=== PATIENT | female | born 1950 | race African-American/Black ===

== ENCOUNTER 2022-09-14 09:25 | Outpatient (CLI) | payer MEDICARE, SELFPAY ==
--- NOTE | ~2022-09-14 | CT_ITS ---
EXAMINATION: CT lung screening DATE: 09/14/2022 10:08 INDICATION: Personal history of nicotine dependence, prior smoker with 60 pack year history TECHNIQUE: Computed tomography (CT) of the chest was performed without intravenous contrast. The dose -length product (DLP) was 120.38 mGy-cm. Automated exposure control and iterative reconstruction tech [employer] were employed. COMPARISON: None FINDINGS: There is mild emphysema. There is a 4 mm nodule of the left lower lobe. There is a 7 mm jux tapleural nodule of the left upper lobe. There is a 3 mm nodule in the right lung apex. No pleural ef fusion or pneumothorax. There is mild dependent atelectasis. Changes of coronary artery bypass grafti ng are noted. No pathologically enlarged thoracic lymph nodes are identified. The heart size is lou l. The gallbladder is surgically absent. IMPRESSION: 1. Lung-RADS category 2: Benign appearance or behavior. Continue annual screening with noncontrast lo w-dose chest CT in 12 months. Reviewed, dictated and finalized at location L. IMPRESSION: 1. Lung-RADS category 2: Benign appearance or behavior. Continue annual screeni ng with noncontrast low-dose chest CT in 12 months.
== END 2022-09-14 09:26 | disposition home or self-care (01) ==
PROVIDERS: Visit Provider Family Medicine
DX: Z12.2 Encounter for screening for malignant neoplasm of respiratory organs (principal); Z87.891 Personal history of nicotine dependence
CPT/HCPCS: 71271

== ENCOUNTER 2022-10-01 10:06 | Outpatient (CLI) | payer MEDICARE, SELFPAY ==
--- NOTE | 2022-10-01 14:13 | WPDPFTINT ---
PFT Procedure Performed PFT Procedure Performed Plethysmography (Lung Vol) Diffusing Cap (DLCO) Flow Vol Loop Spirometry w/o Bronchodil PFT Interpretation This is a pulmonary function test with spirometry, plethysmography and diffusing capacity. The test was performed and results interpreted in accordance with the 2019 and 2005 ATS/ERS Task Force guidelines respectively using the Global Lung Function Initiative-2012 reference equations. Patient demonstrated good effort and cooperation. Reproducibility criteria were met. The quality of the spirometry maneuver was Grade B. Findings: Spirometry: The contour the inspiratory and expiratory flow tracing are normal. The FVC is 2.09 L, 82% predicted. The FEV1 is 1.52 L, 77% predicted. The FEV1: FVC ratio 73%. Plethysmography: Total lung capacity is 6.78 L, 143% predicted. functional residual capacity is 4.50 L, 147% predicted. The residual volume is 3.93 L, 179% predicted. Diffusing capacity: The diffusing capacity unadjusted for hemoglobin and carboxyhemoglobin is 14.7, 70% predicted. The diffusing capacity adjusted for alveolar volume is 4.01, 97% predicted. Impression: The spirometry is normal without evidence of an obstructive abnormality. Hyperinflation is present as the total lung capacity is increased with an increased residual volume to total lung capacity ratio. The diffusing capacity is normal. There are no prior studies for comparison
== END 2022-10-01 10:07 | disposition home or self-care (01) ==
LOC: ANHPFT 10:06
PROVIDERS: Visit Provider Family Medicine
DX: J44.9 Chronic obstructive pulmonary disease, unspecified (principal)
CPT/HCPCS: 94375; 94726; 94729

== ENCOUNTER → 2022-10-04 11:52 | Outpatient (CLI) | payer MEDICARE, SELFPAY ==
--- NOTE | ~2022-10-04 | DEXA_ITS ---
Bone Density Report Name: CANDACE PANIAGUA Age: 71 Sex: Female Ethnicity: Black Date of : 1950 Indication: postmenopausal; screening for osteoporosis; height loss; asthma or emphysema; Referring Provider: ROBER, HENRY Khalil Study: Bone densitometry was performed. Exam Date: October 04, 2022 Accession number: [id number] Bone Density: Region BMD T-score Z-score Classification AP Spine (L1-L4) 1.024 -0.2 1.4 Normal Femoral Neck (Left) 0.611 -2.1 -0.9 Osteopenia Total Hip (Left) 0.880 -0.5 0.3 Normal Femoral Neck (Right) 0.649 -1.8 -0.6 Osteopenia Total Hip (Right) 0.887 -0.5 0.3 Normal Total Hip Mean 0.884 -0.5 0.3 Normal World Health Organization criteria for BMD impression classify patients as: Normal (T-score at or above -1.0), Osteopenia (T-score between -1.0 and -2.5), or Osteoporosis (T-score at or below -2.5). 10-year Fracture Risk(1): Major Osteoporotic Fracture 5.8% Hip Fracture 1.4% Reported Risk Factors: [place] (Black), Neck BMD=0.611, BMI=32.6 (1) FRAX(R) Version 3.08. Fracture probability calculated for an untreated patient. Fracture probability may be lower if the patient has received treatment. Clinical Information Provided by Patient: Has used the following medications: Vitamin D Has the following medical conditions: Asthma or Emphysema Patient maximum height was 66.0 Menopause Age: 50 No regular weight bearing exercise Drinks caffeinated beverages Onset of menses at age 11 Number of children 7 Impression: The patient has low bone mass, based on the Left Femoral Neck T-score. The patient has an estimated ten-year risk of hip fracture of 1.4% and an estimated ten-year risk of major fracture of 5.8%, based on the WHO FRAX algorithm. Discussion: BONE DENSITY IS LOW AT ONE OR MORE SKELETAL SITES. This patient's lowest T-score is low at one or more skeletal sites. It meets the World Health Organization's (WHO) criteria for ?low bone mass? (T-score between -1.0 and -2.5). The patient's 10-year risk of fracture as calculated by FRAX is less than the threshold where pharmacological therapy is recommended by the National Osteoporosis Foundation (NOF). However, all treatment decisions require clinical judgment and consideration of individual patient factors, including patient preferences, comorbidities, previous drug use, risk factors not captured in the FRAX model (e.g., frailty, falls, vitamin D deficiency, increased bone turnover, interval significant decline in bone density) and possible under or overestimation of fracture risk by FRAX. The patient should follow a healthful lifestyle (good nutrition with adequate calcium and vitamin D, and appropriate weight-bearing exercise). Follow-Up: Consider repeating this study in 2 to 3 years to reassess this patient's status, or soone
== END ==
PROVIDERS: PCP Family Medicine; Visit Provider Family Medicine
DX: Z13.820 Encounter for screening for osteoporosis (principal); M81.0 Age-related osteoporosis without current pathological fracture; M85.852 Other specified disorders of bone density and structure, left thigh; M85.851 Other specified disorders of bone density and structure, right thigh
CPT/HCPCS: 77080

== ENCOUNTER 2022-11-16 10:18 | Outpatient (CLI) | payer MEDICARE, SELFPAY ==
--- NOTE | ~2022-11-16 | MM_ITS ---
EXAMINATION: MM screening mehul BI w melody HISTORY: Screening mammogram TECHNIQUE: Craniocaudal and mediolateral oblique 3-D tomosynthesis images were obtained and synthetic 2-D images were generated. CAD analysis was submitted and interpreted. COMPARISON: No prior mammogram is available for comparison at this institution. BREAST PARENCHYMAL COMPOSITION: There are scattered areas of fibroglandular density. FINDINGS: No suspicious mass, calcification, or architectural distortion are identified in either power ast to suggest malignancy. IMPRESSION: 1. No mammographic evidence of malignancy. 2. Recommend routine screening mammography in one year. BI-RADS Category 1: Negative Reviewed, dictated and finalized at location A.
== END 2022-11-16 10:19 | disposition home or self-care (01) ==
PROVIDERS: PCP Family Medicine; Visit Provider Family Medicine
DX: Z12.31 Encounter for screening mammogram for malignant neoplasm of breast (principal)
CPT/HCPCS: 77063; 77067

== ENCOUNTER 2023-05-28 13:30 | Inpatient (IN) | payer MEDICARE, SELFPAY ==
[2023-05-28] VITALS (7 sets, daily range): BP systolic 140–173; BP diastolic 74–94; PULSE 58–72; RESP 16–20; TEMP 36.6–36.7; O2SAT 99–100; BMI 31.3
--- NOTE | ~2023-05-28 | CT_ITS ---
EXAMINATION: CTA chest PE protocol DATE: 05/29/2023 17:47 [employer]ICAL PSYCHOLOGIST [employer] INDICATION: Elevated d-dimer. TECHNIQUE: Computed tomographic angiography (CTA) of the chest was performed with 100 mL Omnipaque-35 0 intravenous contrast. The dose-length product was 532.11 mGy-cm. Maximum intensity projection 3D-re constructions of the aorta and other arteries were constructed by the technologist on a separate work station. COMPARISON: None. FINDINGS: Study technically adequate although evaluation of lower lobe subsegmental pulmonary arterie s limited by motion and contrast bolus timing. No large central pulmonary embolism. Enlarged pulmonar y arteries consistent with pulmonary hypertension. There is atherosclerosis of the aorta and coronary arteries. 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 There is thoracic aortic ectasia. There is emphysema. There is 6 mm left upper lob e nodule, image 30. No focal airspace consolidation. Stable 4 mm left lower lobe nodule. Cardiomegaly . Mild diffuse thickening of the esophagus, suspicious for esophagitis. No significant pleural or per icardial effusion. No thoracic lymphadenopathy. Large amount of debris present in the stomach. There is left renal cyst. IMPRESSION: 1. No large central pulmonary embolism. 2: Pulmonary arterial hypertension. 3: Diffuse atherosclerosis with focal saccular aneurysm of the descending thoracic aorta just above t he diaphragm measuring 3.4 cm. 4: Stable pulmonary nodules measuring 6 mm or less, likely benign. Reviewed, dictated and finalized at location A. [employer] PSYCHOLOG[employer] IMPRESSION: 1. No large central pulmonary embolism. 2: Pulmonary arterial hypertension. 3: Diffuse atherosclerosis with focal saccular aneurysm of the descending thora cic aorta just above the diaphragm measuring 3.4 cm. 4: Stable pulmonary nodules measuring 6 mm or less, likely benign.
--- NOTE | ~2023-05-28 | CT_ITS ---
EXAMINATION: CT abdomen pelvis wo con DATE: 05/28/2023 18:12 INDICATION: Back pain. UTI symptoms. TECHNIQUE: Computed tomography (CT) of the abdomen and pelvis was performed without intravenous contr ast. The dose-length product was 852.18 mGy-cm. Automated exposure control and iterative reconstructi on technique were employed. COMPARISON: None. FINDINGS: Lung bases are unremarkable. No significant pleural or pericardial effusion. Heart size nor mal. There is atherosclerosis and ectasia of the aorta without aneurysm. There are calcified granulom as of the spleen. Status post cholecystectomy. The liver, pancreas, adrenal glands are unremarkable. There is a 3 mm nonobstructing right renal stone. There is a 2 cm left renal cyst. No hydronephrosis. There is calcified uterine fibroid which is exophytic from the uterus. Nonobstructive bowel gas lilli ines. Severe lumbar spondylosis. Mild superior endplate compression deformity of T12, likely chronic. Bladder wall is mildly irregular and contains punctate nondependent gas. IMPRESSION: 1. Nonobstructing right nephrolithiasis. 2: Mildly thickened irregular bladder wall. Punctate focus of nondependent gas present in the bladde r lumen which may be from recent instrumentation or infection. Consider cystitis in the appropriate c linical setting. Reviewed, dictated and finalized at location A. PER DIEM IMPRESSION: 1. Nonobstructing right nephrolithiasis. 2: Mildly thickened irregular bladder wall. Punctate focus of nondependent gas present in the bladder lumen which may be from recent instrumentation or infec tion. Consider cystitis in the appropriate clinical setting.
--- NOTE | ~2023-05-28 | XR_ITS ---
EXAMINATION: XR chest 1V 05/28/2023 18:17 INDICATION: Cough and shortness of breath PROCEDURE: AP view of the chest COMPARISON: No prior studies for comparison. FINDINGS: The lungs are clear. The cardiomediastinal silhouette is within normal limits. There are no pleural effusions. There is no pneumothorax suspected. Status post median sternotomy. IMPRESSION: 1: NO ACUTE CARDIOPULMONARY DISEASE. Reviewed, dictated and finalized at location A. RVISOR KENNEL
--- NOTE | 2023-05-28 17:00 | ECG_ITS ---
Measurements Intervals [place] Rate: 61 P: 35 CA: 170 QRS: 22 QRSD: 89 T: 178 QT: 393 QTc: 398 Interpretive Statements SINUS RHYTHM NONSPECIFIC ST ABNORMALITY BORDERLINE ECG NO PREVIOUS ECG AVAILABLE FOR COMPARISON Electronically Signed On 05-29-2023 11:49:13 [employer] by Steven Wiseman M.D.
--- NOTE | 2023-05-28 17:05 | ED.GENADULT ---
HPI - General Adult General Chief complaint: Urogenital-Female Stated complaint: COPD-has cold, kidney stone Time Seen by Provider: 05/28/23 16:34 Source: patient, RN notes reviewed and old records reviewed Mode of arrival: ambulatory Limitations: no limitations History of Present Illness HPI narrative: This is a 72 year old female with history of COPD, CABG who presents for evaluation of back pain and cough. PAtient states she has had a severe cough for 1 week. Her cough is productive with yellow phlegm. She is also short of breath. She is using her albuterol inhaler every 4 to 6 hours without relief. She denies fever, chest pain. She also reports lower back pain that is worse on the left side. Pain is worse with movement. She reports decreased urination. She denies hematuria, nausea or vomiting. She has not taken any medication for her pain. She denies any fall. Related Data Home Medications Medication Instructions Recorded Confirmed acetaminophen 500 mg tablet 500 mg PO Q6H PRN Back Pain 05/28/23 05/28/23 albuterol sulfate 90 mcg/actuation 90 mcg inhalation PRN wheezing 05/28/23 05/28/23 aerosol inhaler (ProAir HFA) allopurinol 100 mg tablet 100 mg PO DAILY 05/28/23 05/28/23 (Zyloprim) aspirin 81 mg tablet,delayed 81 mg PO DAILY 05/28/23 05/28/23 release (Enteric Coated Aspirin) carvedilol 25 mg tablet (Coreg) 25 mg PO BID 05/28/23 05/28/23 cholecalciferol (vitamin D3) 25 25 mcg PO DAILY 05/28/23 05/28/23 mcg (1,000 unit) tablet (Vitamin D3) clopidogrel 75 mg tablet (Plavix) 75 mg PO DAILY 05/28/23 05/28/23 ezetimibe 10 mg tablet (Zetia) 10 mg PO DAILY 05/28/23 05/28/23 isosorbide mononitrate 60 mg 60 mg PO DAILY 05/28/23 05/28/23 tablet,extended release 24 hr losartan 50 mg tablet (Cozaar) 50 mg PO Q12H 05/28/23 05/29/23 metformin 500 mg tablet,extended 500 mg PO BID 05/28/23 05/28/23 release 24 hr nitroglycerin 0.4 mg sublingual 0.4 mg sublingual PRN 05/28/23 05/28/23 tablet (Nitrostat) pantoprazole 40 mg tablet,delayed 40 mg PO DAILY 05/28/23 05/28/23 release (Protonix) povidone 1.25 % eye drops (Soothe 1 drp ophthalmic (eye) PRN 05/28/23 05/28/23 Hydration) spironolactone 25 mg tablet 25 mg PO DAILY 05/28/23 05/28/23 (Aldactone) evolocumab 140 mg/mL subcutaneous 140 mg subcut [id number] 05/29/23 05/29/23 pen injector (Repatha SureClick) Allergies Allergy/AdvReac Type Severity Reaction Status Date / Time penicillin G Allergy Unknown Verified 05/28/23 13:31 Review of Systems Constitutional: Constitutional: Denies weakness Cardiovascular: Cardiovascular: Denies syncope, Denies rapid heart rate, Denies irregular heart rhythm, Denies leg edema and Reports dyspnea Respiratory: Respiratory: Denies chest congestion, Reports cough, Denies hemoptysis, Denies excessive phlegm production and Reports dyspnea Gastrointestinal: Gastrointestinal: Denies abdominal pain, Denies hematochezia, Denies diarrhea and Denies vomiting Genitourinary: Genitourinary: Denies hematuria and Denies dysuria Musculoskeletal: Musculoskeletal: Reports back pain, Denies joint swelling, Denies loss of height and Denies muscle weakness Neurologic: Denies syncope, Denies focal weakness and Denies weakness PMF Past Medical History Medical History Cerebrovascular accident Coronary artery disease Emphysema/COPD Hyperlipidemia Hypertension Osteoarthritis Type 2 diabetes mellitus Surgical History Surgical History History of bilateral knee arthroplasty History of cataract extraction History of cholecystectomy History of coronary artery bypass graft (2021) History of spinal surgery Family History Family History (Updated 05/28/23 @ 23:41 by Stacia Solomon PA-C) Other Cancer Diabetes mellitus Heart disease Hypertension Social History Social History (Updated 05/28/23 @ 23
[2023-05-28] MEDS: ALBUTEROL SULFATE NEB 2.5 MG/3 ML INH 5 MG INHALATION (17:18)
[2023-05-28] MEDS: IPRATROPIUM BR 0.02% INH SOLN 0.5 MG/2.5 ML VIAL INHALATION (17:18)
[2023-05-28 17:25] LABS: Alveolar/Arterial O2 Gradient 32.4 mmHg; Base Excess ABG -1.9 mEq/l (+/-2.0); Carboxyhemoglobin 0.2 % THb (0-2.0); Fractional Inspired Oxygen 21 %; Methemoglobin ABG 0.4 %THb (0-1.5); Oxygen Content ABG 16.2 %vol (16.0-22.0); Oxygen Saturation ABG 93.8 % (95.0-100.0); Oxyhemoglobin 92.7 % THb (90.0-100.0); PCO2 ABG 39.6 mmHg (35.0-45.0); PO2 ABG 69.9 mmHg (80.0-100.0); PO2 FiO2 Ratio Arterial Blood 3.33 %; Reduced Hemoglobin 6.7 %THb (0-5.0); Total Hemoglobin 12.4 g/dL (12.0-18.0); pH ABG 7.382 (7.350-7.450)
[2023-05-28 17:27] LABS: Device ROOM AIR; Site Drawn RIGHT BRACHIAL
[2023-05-28 18:10] LABS: Basophils Absolute Auto 0.1 K/mm3 (0.0-0.1); Basophils Percent Auto 0.7 % (0.2-1.2); Eosinophils Absolute Auto 0.3 K/mm3 (0-0.3); Eosinophils Percent Auto 3.2 % (0-4.4); Hematocrit 38.7 % (37.0-47.0); Hemoglobin 11.9 g/dL (12.0-15.0); Immature Granulocyte Absolute 0.03 K/mm3 (0.00-0.031); Immature Granulocyte Percent A 0.3 % (0-0.5); Lymphocytes Absolute Auto 4.23 K/mm3 (0.9-3.2); Lymphocytes Percent Auto 45.3 % (18.3-44.2); Mean Corpuscular HGB Conc 30.7 g/dl (32-36); Mean Corpuscular Hemoglobin 26.3 pg (26-34); Mean Corpuscular Volume 85.6 fl (80-100); Mean Platelet Volume 10.5 fl (7.4-10.4); Monocytes Absolute Auto 0.7 K/mm3 (0.1-0.6); Monocytes Percent Auto 7.3 % (2.6-8.5); Neutrophils Percent Auto 43.2 % (45.5-73.1); Platelet Count Result 271 k/mm3 (150-375); Red Blood Count 4.52 M/mm3 (4.2-5.4); Red Cell Distribution Width 16.6 % (11.5-14.5); White Blood Count 9.3 K/mm3 (4.5-10.0)
[2023-05-28 18:32] LABS: Alanine Aminotransferase 21 U/L (6-35); Albumin Level 4.3 g/dL (3.5-5.1); Alkaline Phosphatase 85 U/L (38-126); Anion Gap 13 mmol/L (8-16); Aspartate Amino Transferase 20 U/L (14-36); Bilirubin,Total 0.5 mg/dL (0.2-1.3); Blood Urea Nitrogen 7 mg/dL (7-17); Calcium 9.9 mg/dL (8.4-10.2); Carbon Dioxide 23 mmol/L (22-30); Chloride 106 mmol/L (98-107); Estimated CRCL calculation 78 ml/min; Estimated Glomerular Filt Rate > 60; Glucose 125 mg/dL (65-110); Potassium 3.4 mmol/L (3.4-5.0); Sodium 142 mmol/L (137-145)
[2023-05-28 18:33] LABS: Influenza A QL RT-PCR Negative (Negative); Influenza B QL RT-PCR Negative (Negative); RSV RNA, RT-PCR Negative (Negative); SARS-CoV-2 RNA PCR Negative (Negative)
[2023-05-28 18:35] LABS: Partial Thromboplastin Time 28.8 SECONDS (22.3-36.8); Prothrombin Time 13.6 Seconds (11.1-14.7)
[2023-05-28 18:43] LABS: NT Pro B Type Natriuretic Pept 140 pg/mL (19.9-100); Troponin I < 0.012 ng/mL (0.000-0.034)
[2023-05-28] MEDS: predniSONE 20 MG TABLET 60 MG PO (19:01)
[2023-05-28 19:04] LABS: Appearance Urine Clear (Clear); Bacteria Urine 4+ /hpf; Bilirubin Urine Negative (Negative); Blood Urine Negative (Negative); Color Urine Yellow (Yellow); Glucose Urine UA Negative (Negative); Ketones Urine Negative (Negative); Leukocyte Esterase Ur 1+ LEU/UL (Negative); Nitrate Urine Positive (Negative); Non Pathogenic Casts 0-2; Protein Urine Negative (Negative); RBC Urine 0-2 /hpf (0-2); Specific Grav Ur 1.017 (1.001-1.035); Squamous Epithelial Cell Urine None seen /hpf (Few); Urobilinogen Urine 0.2 mg/dL (<2.0); pH Urine 5.5 (5.0-9.0)
[2023-05-28 19:05] LABS: Need Manual Microscopic Reviewed
[2023-05-28 19:06] LABS: Add Urine Microscopic? YES
[2023-05-28] MEDS: ALBUTEROL SULFATE NEB 2.5 MG/3 ML INH INHALATION (21:01)
[2023-05-28] MEDS: SODIUM CHLORIDE 0.9% IV 1,000 ML 125 ML IV CONT (22:10)
--- NOTE | 2023-05-28 22:34 | PM.IMHP ---
H&P: HPI History of Present Illness Date/Time: 05/28/23 22:30 Chief Complaint: Cough, back pain, decreasing urination. Narrative: This is a very pleasant 72-year-old female with chronic obstructive pulmonary disease, coronary artery disease status post CABG, hypertension, dyslipidemia, type 2 diabetes mellitus, and gastroesophageal reflux disease who presented to the emergency department via private vehicle for evaluation of multiple complaints including cough, back pain, and a decrease in urination. The patient provides the following history. She reports having a cough for approximately 1 week and it has been productive of thick, white phlegm. She also endorses increasing dyspnea on lesser and lesser exertion and wheezing. She has been using her albuterol inhaler every 4 to 6 hours without much benefit. She has not had fever, chills, or sweats and she denies sinus congestion, sore throat, and sick contacts. She also mentions chronic back pain, mainly on the left side, but it has been worse the last couple of days. At times it is worse with cough and deep inspiration, but mainly with movement. She was previously on hydrocodone although her doctor and she never got that refilled however that has been several months. She was worried that perhaps she had a kidney stone as the pain has been a bit worse. She denies fall, injury, hematuria, and dysuria. The pain does not radiate and seems to be reproducible on palpation. No history of DVT. In the ED: She was afebrile on arrival with stable vital signs. CMP and CBC were pretty unremarkable. She tested negative for influenza, RSV, and COVID. Chest x-ray showed no acute cardiopulmonary disease. Urine was nitrate and leukocyte esterase positive with 11 to 20 WBC and 4+ bacteria. CT of the abdomen and pelvis showed nonobstructing right nephrolithiasis and mildly thickened irregular bladder wall. She received a nebulizer treatment and p.o. prednisone for COPD. She also received a g of ceftriaxone for a suspected urinary tract infection. She is being admitted in this setting for further treatment. At the time my evaluation she is resting comfortably and states that she is feeling better after receiving a nebulizer treatment. Review of Systems Review of Systems: Twelve systems were reviewed and are negative except for as per HPI. [facility] Past Medical History Medical History Cerebrovascular accident Coronary artery disease Emphysema/COPD Hyperlipidemia Hypertension Osteoarthritis Type 2 diabetes mellitus Surgical History Surgical History History of bilateral knee arthroplasty History of cataract extraction History of cholecystectomy History of coronary artery bypass graft (2021) History of spinal surgery Family History Family History (Updated 05/28/23 @ 23:41 by Stacia Solomon PA-C) Other Cancer Diabetes mellitus Heart disease Hypertension Social History Social History (Updated 05/28/23 @ 23:41 by Stacia Solomon PA-C) Social History: Surrogate medical decision maker: Kimi Lacy, daughter. Code status: Full code. Smoking packs per day: 2 Smoking cigarettes per day: 40.0 Years smoked: 60 Smoking pack-years: 120.00 Smoking status: Former smoker Tobacco type: cigarettes Smokeless tobacco user: other Second hand tobacco smoke exposure: Yes Smoking end date: 07/27/19 Alcohol intake: never Substance use: never Lack of Transportation: No Lack of Food: Never True Current Housing: I Have Housing Concerned About Future Housing: No Difficulty Paying Gas/Electric Bills: No Difficulty Paying for Meds: No Currently Unemployed: No Education: High School Diploma/GED Difficulty w/ Childcare or Family Care: No Living arrangements: with family Additional living arrangements comments: The patient grew up in [facility]
[2023-05-28] MEDS: AZITHROMYCIN 500 MG/NS 250 ML 500 MG/250 ML BAG 250 MG IVPB (23:45)
[2023-05-29] VITALS (14 sets, daily range): BP systolic 114–152; BP diastolic 67–91; PULSE 71–96; RESP 16–20; TEMP 36.4–36.6; O2SAT 97–100
[2023-05-29 01:37] LABS: D Dimer 1.84 ug/mL (<0.48)
[2023-05-29] MEDS: SODIUM CHLORIDE 0.9% IV 1,000 ML 125 ML IV CONT (02:46)
[2023-05-29] MEDS: ALBUTEROL SULFATE NEB 2.5 MG/3 ML INH INHALATION ×4 (02:50→19:42)
[2023-05-29] MEDS: carvediloL 25 MG TABLET PO ×3 (05:18→19:57)
[2023-05-29 07:44] LABS: Basophils Percent Auto 0.3 % (0.2-1.2); Hematocrit 38.7 % (37.0-47.0); Hemoglobin 11.5 g/dL (12.0-15.0); Immature Granulocyte Absolute 0.04 K/mm3 (0.00-0.031); Immature Granulocyte Percent A 0.5 % (0-0.5); Lymphocytes Absolute Auto 1.62 K/mm3 (0.9-3.2); Lymphocytes Percent Auto 20.3 % (18.3-44.2); Mean Corpuscular HGB Conc 29.7 g/dl (32-36); Mean Corpuscular Hemoglobin 25.7 pg (26-34); Mean Corpuscular Volume 86.4 fl (80-100); Mean Platelet Volume 10.8 fl (7.4-10.4); Monocytes Absolute Auto 0.1 K/mm3 (0.1-0.6); Monocytes Percent Auto 1.5 % (2.6-8.5); Neutrophils Absolute Auto 6.2 K/mm3 (1.3-6.7); Neutrophils Percent Auto 77.4 % (45.5-73.1); Platelet Count Result 280 k/mm3 (150-375); Red Blood Count 4.48 M/mm3 (4.2-5.4); Red Cell Distribution Width 16.5 % (11.5-14.5)
[2023-05-29 07:54] LABS: Alanine Aminotransferase 24 U/L (6-35); Albumin Level 3.8 g/dL (3.5-5.1); Alkaline Phosphatase 90 U/L (38-126); Anion Gap 14 mmol/L (8-16); Aspartate Amino Transferase 23 U/L (14-36); Bilirubin,Total 0.4 mg/dL (0.2-1.3); Blood Urea Nitrogen 5 mg/dL (7-17); Calcium 9.5 mg/dL (8.4-10.2); Carbon Dioxide 18 mmol/L (22-30); Chloride 109 mmol/L (98-107); Estimated CRCL calculation 92 ml/min; Estimated Glomerular Filt Rate > 60; Glucose 152 mg/dL (65-110); Magnesium 1.8 mg/dL (1.6-2.3); Potassium 3.8 mmol/L (3.4-5.0); Sodium 141 mmol/L (137-145)
[2023-05-29 08:17] LABS: Glucose Point of Care 135 mg/dl (65-105)
[2023-05-29] MEDS: predniSONE 20 MG TABLET 60 MG PO (08:33)
[2023-05-29] MEDS: SPIRONOLACTONE 25 MG TABLET PO (08:33)
[2023-05-29] MEDS: CLOPIDOGREL BISULFATE 75 MG TABLET PO (08:33)
[2023-05-29] MEDS: ASPIRIN 81 MG ENTERIC TABLET PO (08:33)
[2023-05-29] MEDS: CHOLECALCIFEROL 1,000 UNITS TABLET 1000 UNITS PO (08:33)
[2023-05-29] MEDS: EZETIMIBE 10 MG TABLET PO (08:34)
[2023-05-29] MEDS: ISOSORBIDE MONONITRATE 60 MG TAB.ER.24H PO (08:34)
[2023-05-29] MEDS: allopurinoL 100 MG TABLET PO (08:34)
[2023-05-29] MEDS: PANTOPRAZOLE 40 MG TABLET PO (08:37)
[2023-05-29] MEDS: LOSARTAN POTASSIUM 50 MG TABLET PO (08:37)
--- NOTE | 2023-05-29 10:12 | PM.IMPN ---
Progress Note: A&P Assessment and Plan (1) COPD exacerbation: Code(s): J44.1 - Chronic obstructive pulmonary disease with (acute) exacerbation Status: Acute Assessment and Plan: 05/29/23: Continue neb treatments as patient is wheezing today Continue Prednisone Continue Azithromycin Sputum culture pending. (2) Urinary tract infection: Code(s): N39.0 - Urinary tract infection, site not specified Status: Acute Assessment and Plan: 05/29/23: UA positive for nitrates, 1+ leukocytes,4+ bacteria, urine WBC's 11-20. Urine culture obtained and is pending Continue Rocephin (3) Hypertension: Code(s): I10 - Essential (primary) hypertension Status: Acute Assessment and Plan: 05/29/23: Blood pressures ranging 114/67 to 152/91 Continues spironolactone, losartan, Imdur (4) Type 2 diabetes mellitus: Code(s): E11.9 - Type 2 diabetes mellitus without complications Status: Acute Assessment and Plan: 05/29/23: Blood sugars ranging 135-132 Hemoglobin A1c 6.0 Continue Accu-Cheks AC and HS Continue moderate dose sliding scale insulin Continue to hold metformin (5) Coronary artery disease: Code(s): I25.10 - Atherosclerotic heart disease of [place] coronary artery without angina pectoris Status: Acute Assessment and Plan: 05/29/23: Continue aspirin and Plavix Continue atorvastatin and Zeita (6) Elevated d-dimer: Code(s): R79.89 - Other specified abnormal findings of blood chemistry Status: Acute Assessment and Plan: 05/29/23: D- dimer 1.84 CTA of the chest ordered to rule out PE as patient is experiencing SOB Time Spent With Patient Time with patient: Greater than 35 minutes Subjective Date/time seen: 05/29/23 10:12 Interval history: This is a 72 year old female who presented to the hospital on 05/28/23 with complaints of cough, back pain, decreased urination, and shortness of breath. Work up in hospital includes a chest x-ray which was negative for any acute cardiopulmonary process, abdominal/pelvic CT showing nonobstructing right nephrolithiasis, mildly thickened irregular bladder wall, punctuate focus of nondependent gas present in the bladder lumen which may be from recent instrumention or infection, consider cystitis. UA was positive for nitrates, 1+ leukocytes, 4+ bacteria, urine WBC's 11-20. Urine and blood cultures were obtained. Patient was started on Rocephin and Azithromycin. On examination today patient is alert and oriented x3, lying in the bed. She denies any acute pain. VSS, she is afebrile, she is currently in room air. Labs today revealed WBC 8.0, hemoglobin 11.5, hematocrit 38.7, sodium 141, potassium 3.8 chloride 109, bicarb 18, BUN 5, creatinine 0.5, blood sugars ranging 152-169, hemoglobin A1c 6.0, liver enzymes normal, D-dimer 1.84. We will go ahead and get a CTA of the chest to rule out PE considering her D-dimer is elevated and she continues to be short of breath today. Blood in urine cultures are pending. Patient will remain on Rocephin and azithromycin. Review of Systems Review of Systems: Twelve systems were reviewed and are negative except for as per HPI. Constitutional: Constitutional: Reports as per HPI and Reports no additional constitutional complaints Eyes: Eyes: Reports as per HPI and Reports no additional eye complaints ENT: Reports system reviewed and no additional complaints, except as documented and Reports as per HPI Cardiovascular: Cardiovascular: Reports as per HPI and Reports no additional cardiovascular complaints Respiratory: Respiratory: Reports as per HPI and Reports no additional respiratory complaints Gastrointestinal: Gastrointestinal: Reports as per HPI and Reports no additional gastrointestinal complaints Genitourinary: Genitourinary: Reports no additional female genitourinary complaints and Reports as per HPI Musculoskeletal: Musculoskeletal: Reports n
[2023-05-29 11:42] LABS: Glucose Point of Care 169 mg/dl (65-105)
[2023-05-29 16:39] LABS: Glucose Point of Care 154 mg/dl (65-105)
[2023-05-29] MEDS: AZITHROMYCIN 500 MG/NS 250 ML 500 MG/250 ML BAG 250 MG IVPB (20:00)
[2023-05-29] MEDS: INSULIN ASPART (*BKC) 100 UNITS/ML SUB-Q (20:01)
[2023-05-29 20:03] LABS: Glucose Point of Care 220 mg/dl (65-105)
[2023-05-30] VITALS (14 sets, daily range): BP systolic 116–151; BP diastolic 66–69; PULSE 55–80; RESP 14–20; TEMP 35.8–36.6; O2SAT 95–99
[2023-05-30] MEDS: ALBUTEROL SULFATE NEB 2.5 MG/3 ML INH INHALATION ×4 (01:46→20:34)
[2023-05-30 06:47] LABS: Basophils Percent Auto 0.1 % (0.2-1.2); Hematocrit 34.2 % (37.0-47.0); Hemoglobin 10.8 g/dL (12.0-15.0); Immature Granulocyte Absolute 0.04 K/mm3 (0.00-0.031); Immature Granulocyte Percent A 0.3 % (0-0.5); Lymphocytes Absolute Auto 2.86 K/mm3 (0.9-3.2); Lymphocytes Percent Auto 24.9 % (18.3-44.2); Mean Corpuscular HGB Conc 31.6 g/dl (32-36); Mean Corpuscular Hemoglobin 26.5 pg (26-34); Mean Platelet Volume 10.5 fl (7.4-10.4); Monocytes Absolute Auto 0.7 K/mm3 (0.1-0.6); Neutrophils Absolute Auto 7.9 K/mm3 (1.3-6.7); Neutrophils Percent Auto 68.7 % (45.5-73.1); Platelet Count Result 270 k/mm3 (150-375); Red Blood Count 4.07 M/mm3 (4.2-5.4); Red Cell Distribution Width 16.4 % (11.5-14.5); White Blood Count 11.5 K/mm3 (4.5-10.0)
[2023-05-30 07:05] LABS: Alanine Aminotransferase 26 U/L (6-35); Albumin Level 3.6 g/dL (3.5-5.1); Alkaline Phosphatase 77 U/L (38-126); Anion Gap 9 mmol/L (8-16); Aspartate Amino Transferase 23 U/L (14-36); Bilirubin,Total 0.3 mg/dL (0.2-1.3); Blood Urea Nitrogen 7 mg/dL (7-17); Calcium 9.3 mg/dL (8.4-10.2); Carbon Dioxide 25 mmol/L (22-30); Chloride 108 mmol/L (98-107); Estimated CRCL calculation 92 ml/min; Estimated Glomerular Filt Rate > 60; Glucose 125 mg/dL (65-110); Potassium 3.6 mmol/L (3.4-5.0); Sodium 142 mmol/L (137-145)
--- NOTE | 2023-05-30 08:15 | P.PNIM_ITS ---
Progress Note: A&P Assessment and Plan (1) COPD exacerbation: Code(s): J44.1 - Chronic obstructive pulmonary disease with (acute) exacerbation Status: Acute Assessment and Plan: 05/29/23: * Continue neb treatments as patient is wheezing today * Continue Prednisone * Continue Azithromycin * Sputum culture pending. 05/30/23: * Sputum culture still pending * Continue with current treatment plan (2) Urinary tract infection: Code(s): N39.0 - Urinary tract infection, site not specified Status: Acute Assessment and Plan: 05/29/23: * UA positive for nitrates, 1+ leukocytes,4+ bacteria, urine WBC's 11-20. * Urine culture obtained and is pending * Continue Rocephin 05/30/23: * Urine culture still pending * Continue Rocephin (3) Hypertension: Code(s): I10 - Essential (primary) hypertension Status: Acute Assessment and Plan: 05/29/23: * Blood pressures ranging 114/67 to 152/91 * Continues spironolactone, losartan, Imdur 05/30/23: * Blood pressure ranging 114/67 to 151/69 * No change to current treatment plan (4) Type 2 diabetes mellitus: Code(s): E11.9 - Type 2 diabetes mellitus without complications Status: Acute Assessment and Plan: 05/29/23: * Blood sugars ranging 135-132 * Hemoglobin A1c 6.0 * Continue Accu-Cheks AC and HS * Continue moderate dose sliding scale insulin * Continue to hold metformin 05/30/23: * Blood sugars ranging 125-220, more elevated today probably due to the prednisone * Continue moderate dose sliding scale insulin for now may need to go up to high-dose sliding scale insulin * Continue Accu-Cheks a.c. and HS * Continue to hold metformin (5) Coronary artery disease: Code(s): I25.10 - Atherosclerotic heart disease of [place] coronary artery without angina pectoris Status: Acute Assessment and Plan: 05/29/23: * Continue aspirin and Plavix * Continue atorvastatin and Zeita 05/30/23: * No change to current treatment plan (6) Elevated d-dimer: Code(s): R79.89 - Other specified abnormal findings of blood chemistry Status: Acute Assessment and Plan: 05/29/23: * D- dimer 1.84 * CTA of the chest ordered to rule out PE as patient is experiencing SOB 05/30/23: * CTA of the chest was negative for PE however did show some pulmonary arterial hypertension and a 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 Work up in hospital includes a chest x-ray which was negative for any acute cardiopulmonary process, abdominal/pelvic CT showing nonobstructing right nephrolithiasis, mildly thickened irregular bladder wall, punctuate focus of nondependent gas present in the bladder lumen which may be from recent instrumention or infection, consider cystitis. UA was positive for nitrates, 1+ leukocytes, 4+ bacteria, urine WBC's 11-20. Urine and blood cultures were obtained. Patient was started on Rocephin and Azithromycin. On examination today patient is alert and oriented x3, lying in the bed. She denies any acute pain. VSS, she is afebrile, she is currently in room air. Labs today revealed WBC 8.0, hemoglobin 11.5, hematocrit 38.7, sodium 141, potassium 3.8 chloride
--- NOTE | 2023-05-30 08:15 | PM.IMPN ---
Progress Note: A&P Assessment and Plan (1) COPD exacerbation: Code(s): J44.1 - Chronic obstructive pulmonary disease with (acute) exacerbation Status: Acute Assessment and Plan: 05/29/23: Continue neb treatments as patient is wheezing today Continue Prednisone Continue Azithromycin Sputum culture pending. 05/30/23: Sputum culture still pending Continue with current treatment plan (2) Urinary tract infection: Code(s): N39.0 - Urinary tract infection, site not specified Status: Acute Assessment and Plan: 05/29/23: UA positive for nitrates, 1+ leukocytes,4+ bacteria, urine WBC's 11-20. Urine culture obtained and is pending Continue Rocephin 05/30/23: Urine culture still pending Continue Rocephin (3) Hypertension: Code(s): I10 - Essential (primary) hypertension Status: Acute Assessment and Plan: 05/29/23: Blood pressures ranging 114/67 to 152/91 Continues spironolactone, losartan, Imdur 05/30/23: Blood pressure ranging 114/67 to 151/69 No change to current treatment plan (4) Type 2 diabetes mellitus: Code(s): E11.9 - Type 2 diabetes mellitus without complications Status: Acute Assessment and Plan: 05/29/23: Blood sugars ranging 135-132 Hemoglobin A1c 6.0 Continue Accu-Cheks AC and HS Continue moderate dose sliding scale insulin Continue to hold metformin 05/30/23: Blood sugars ranging 125-220, more elevated today probably due to the prednisone Continue moderate dose sliding scale insulin for now may need to go up to high-dose sliding scale insulin Continue Accu-Cheks a.c. and HS Continue to hold metformin (5) Coronary artery disease: Code(s): I25.10 - Atherosclerotic heart disease of [place] coronary artery without angina pectoris Status: Acute Assessment and Plan: 05/29/23: Continue aspirin and Plavix Continue atorvastatin and Zeita 05/30/23: No change to current treatment plan (6) Elevated d-dimer: Code(s): R79.89 - Other specified abnormal findings of blood chemistry Status: Acute Assessment and Plan: 05/29/23: D- dimer 1.84 CTA of the chest ordered to rule out PE as patient is experiencing SOB 05/30/23: CTA of the chest was negative for PE however did show some pulmonary arterial hypertension and a 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 Work up in hospital includes a chest x-ray which was negative for any acute cardiopulmonary process, abdominal/pelvic CT showing nonobstructing right nephrolithiasis, mildly thickened irregular bladder wall, punctuate focus of nondependent gas present in the bladder lumen which may be from recent instrumention or infection, consider cystitis. UA was positive for nitrates, 1+ leukocytes, 4+ bacteria, urine WBC's 11-20. Urine and blood cultures were obtained. Patient was started on Rocephin and Azithromycin. On examination today patient is alert and oriented x3, lying in the bed. She denies any acute pain. VSS, she is afebrile, she is currently in room air. Labs today revealed WBC 8.0, hemoglobin 11.5, hematocrit 38.7, sodium 141, potassium 3.8 chloride 109, bicarb 18, BUN 5, creatinine 0.5, blood sugars ranging 152-169, hemoglobin A1c 6.0, liver enzymes normal, D-dimer 1.84. We will go ahead and get a CTA of the chest to rule out PE considering her D-dimer is elevated and she continues to be short of breath today. Blood in urine cultures are pending. Patient will remain on Rocephin and azithromycin. 05/30/23: On examination today patient is alert oriented x3, lying in the bed. She denies any fever
[2023-05-30 08:17] LABS: Glucose Point of Care 126 mg/dl (65-105)
[2023-05-30] MEDS: allopurinoL 100 MG TABLET PO (08:28)
[2023-05-30] MEDS: ATORVASTATIN 40 MG TABLET 80 MG PO (08:28)
[2023-05-30] MEDS: ASPIRIN 81 MG ENTERIC TABLET PO (08:28)
[2023-05-30] MEDS: predniSONE 20 MG TABLET 60 MG PO (08:28)
[2023-05-30] MEDS: CLOPIDOGREL BISULFATE 75 MG TABLET PO (08:28)
[2023-05-30] MEDS: CHOLECALCIFEROL 1,000 UNITS TABLET 1000 UNITS PO (08:28)
[2023-05-30] MEDS: EZETIMIBE 10 MG TABLET PO (08:28)
[2023-05-30] MEDS: LOSARTAN POTASSIUM 50 MG TABLET PO (08:29)
[2023-05-30] MEDS: PANTOPRAZOLE 40 MG TABLET PO (08:29)
[2023-05-30] MEDS: SPIRONOLACTONE 25 MG TABLET PO (08:29)
[2023-05-30] MEDS: ISOSORBIDE MONONITRATE 60 MG TAB.ER.24H PO (08:29)
[2023-05-30] MEDS: ENOXAPARIN 40 MG/0.4 ML SYRINGE SUB-Q (10:37)
[2023-05-30] MEDS: carvediloL 25 MG TABLET PO ×2 (10:37→20:00)
[2023-05-30 11:47] LABS: Glucose Point of Care 187 mg/dl (65-105)
[2023-05-30 16:49] LABS: Glucose Point of Care 258 mg/dl (65-105)
[2023-05-30] MEDS: INSULIN ASPART (*BKC) 100 UNITS/ML SUB-Q ×2 (17:06→20:03)
[2023-05-30] MEDS: AZITHROMYCIN 250 MG TABLET 500 MG PO (20:00)
[2023-05-30 21:30] LABS: Glucose Point of Care 223 mg/dl (65-105)
[2023-05-31] VITALS (13 sets, daily range): BP systolic 130–152; BP diastolic 74–77; PULSE 55–80; RESP 16–20; TEMP 35.8–37.1; O2SAT 98–100
[2023-05-31] MEDS: ALBUTEROL SULFATE NEB 2.5 MG/3 ML INH INHALATION ×3 (01:57→20:54)
[2023-05-31 07:01] LABS: Basophils Percent Auto 0.3 % (0.2-1.2); Eosinophils Percent Auto 0.1 % (0-4.4); Hematocrit 33.8 % (37.0-47.0); Hemoglobin 10.5 g/dL (12.0-15.0); Immature Granulocyte Absolute 0.07 K/mm3 (0.00-0.031); Immature Granulocyte Percent A 0.7 % (0-0.5); Lymphocytes Absolute Auto 3.41 K/mm3 (0.9-3.2); Lymphocytes Percent Auto 31.8 % (18.3-44.2); Mean Corpuscular HGB Conc 31.1 g/dl (32-36); Mean Corpuscular Hemoglobin 26.2 pg (26-34); Mean Corpuscular Volume 84.3 fl (80-100); Mean Platelet Volume 10.8 fl (7.4-10.4); Monocytes Absolute Auto 0.7 K/mm3 (0.1-0.6); Monocytes Percent Auto 6.4 % (2.6-8.5); Neutrophils Absolute Auto 6.5 K/mm3 (1.3-6.7); Neutrophils Percent Auto 60.7 % (45.5-73.1); Platelet Count Result 260 k/mm3 (150-375); Red Blood Count 4.01 M/mm3 (4.2-5.4); Red Cell Distribution Width 16.4 % (11.5-14.5); White Blood Count 10.7 K/mm3 (4.5-10.0)
[2023-05-31 07:37] LABS: Alanine Aminotransferase 32 U/L (6-35); Albumin Level 3.6 g/dL (3.5-5.1); Alkaline Phosphatase 76 U/L (38-126); Anion Gap 7 mmol/L (8-16); Aspartate Amino Transferase 27 U/L (14-36); Bilirubin,Total 0.3 mg/dL (0.2-1.3); Blood Urea Nitrogen 11 mg/dL (7-17); Calcium 9.3 mg/dL (8.4-10.2); Carbon Dioxide 26 mmol/L (22-30); Chloride 106 mmol/L (98-107); Estimated CRCL calculation 92 ml/min; Estimated Glomerular Filt Rate > 60; Glucose 122 mg/dL (65-110); Potassium 3.5 mmol/L (3.4-5.0); Sodium 139 mmol/L (137-145)
[2023-05-31 08:02] LABS: Glucose Point of Care 122 mg/dl (65-105)
[2023-05-31] MEDS: allopurinoL 100 MG TABLET PO (09:24)
[2023-05-31] MEDS: PANTOPRAZOLE 40 MG TABLET PO (09:24)
[2023-05-31] MEDS: EZETIMIBE 10 MG TABLET PO (09:24)
[2023-05-31] MEDS: predniSONE 20 MG TABLET 60 MG PO (09:24)
[2023-05-31] MEDS: carvediloL 25 MG TABLET PO ×2 (09:24→20:28)
[2023-05-31] MEDS: SPIRONOLACTONE 25 MG TABLET PO (09:24)
[2023-05-31] MEDS: CLOPIDOGREL BISULFATE 75 MG TABLET PO (09:24)
[2023-05-31] MEDS: ISOSORBIDE MONONITRATE 60 MG TAB.ER.24H PO (09:24)
[2023-05-31] MEDS: CHOLECALCIFEROL 1,000 UNITS TABLET 1000 UNITS PO (09:24)
[2023-05-31] MEDS: ENOXAPARIN 40 MG/0.4 ML SYRINGE SUB-Q (09:26)
[2023-05-31] MEDS: ASPIRIN 81 MG ENTERIC TABLET PO (09:26)
[2023-05-31] MEDS: LOSARTAN POTASSIUM 50 MG TABLET PO (09:27)
[2023-05-31 11:56] LABS: Glucose Point of Care 185 mg/dl (65-105)
--- NOTE | 2023-05-31 15:18 | P.PNIM_ITS ---
Progress Note: A&P Assessment and Plan (1) COPD exacerbation: Code(s): J44.1 - Chronic obstructive pulmonary disease with (acute) exacerbation Status: Acute Assessment and Plan: 05/29/23: * Continue neb treatments as patient is wheezing today * Continue Prednisone * Continue Azithromycin * Sputum culture pending. 05/30/23: * Sputum culture still pending * Continue with current treatment plan 05/31/2023: * sputum culture showing normal lou * patient continues to be breathless with mild expiratory wheezing * continue prednisone 60 mg daily * continue azithromycin * continue breathing treatments (2) Urinary tract infection: Code(s): N39.0 - Urinary tract infection, site not specified Status: Acute Assessment and Plan: 05/29/23: * UA positive for nitrates, 1+ leukocytes,4+ bacteria, urine WBC's 11-20. * Urine culture obtained and is pending * Continue Rocephin 05/30/23: * Urine culture still pending * Continue Rocephin (3) Hypertension: Code(s): I10 - Essential (primary) hypertension Status: Acute Assessment and Plan: 05/29/23: * Blood pressures ranging 114/67 to 152/91 * Continues spironolactone, losartan, Imdur 05/30/23: * Blood pressure ranging 114/67 to 151/69 * No change to current treatment plan 05/31/2023: * no change to current treatment plan (4) Type 2 diabetes mellitus: Code(s): E11.9 - Type 2 diabetes mellitus without complications Status: Acute Assessment and Plan: 05/29/23: * Blood sugars ranging 135-132 * Hemoglobin A1c 6.0 * Continue Accu-Cheks AC and HS * Continue moderate dose sliding scale insulin * Continue to hold metformin 05/30/23: * Blood sugars ranging 125-220, more elevated today probably due to the prednisone * Continue moderate dose sliding scale insulin for now may need to go up to high-dose sliding scale insulin * Continue Accu-Cheks a.c. and HS * Continue to hold metformin 05/31/2023: * blood sugars ranging 122-185 * no change to current treatment plan (5) Coronary artery disease: Code(s): I25.10 - Atherosclerotic heart disease of [place] coronary artery without angina pectoris Status: Acute Assessment and Plan: 12/3/23: * Continue aspirin and Plavix * Continue atorvastatin and Zeita 05/30/23: * No change to current treatment plan (6) Elevated d-dimer: Code(s): R79.89 - Other specified abnormal findings of blood chemistry Status: Acute Assessment and Plan: 05/29/23: * D- dimer 1.84 * CTA of the chest ordered to rule out PE as patient is experiencing SOB 05/30/23: * CTA of the chest was negative for PE however did show some pulmonary arterial hypertension and a 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 Work up in hospital includes a chest x-ray which was negative for any acute cardiopulmonary process, abdominal/pelvic CT showing nonobstructing right nephrolithiasis, mildly thickened irregular bladder wall, punctuate focus of nondependent gas present in the bladder lumen which may be from recent instrumention or infection, consider cystitis. UA was positive
--- NOTE | 2023-05-31 15:18 | PM.IMPN ---
Progress Note: A&P Assessment and Plan (1) COPD exacerbation: Code(s): J44.1 - Chronic obstructive pulmonary disease with (acute) exacerbation Status: Acute Assessment and Plan: 05/29/23: Continue neb treatments as patient is wheezing today Continue Prednisone Continue Azithromycin Sputum culture pending. 05/30/23: Sputum culture still pending Continue with current treatment plan 05/31/2023: sputum culture showing normal lou patient continues to be breathless with mild expiratory wheezing continue prednisone 60 mg daily continue azithromycin continue breathing treatments (2) Urinary tract infection: Code(s): N39.0 - Urinary tract infection, site not specified Status: Acute Assessment and Plan: 05/29/23: UA positive for nitrates, 1+ leukocytes,4+ bacteria, urine WBC's 11-20. Urine culture obtained and is pending Continue Rocephin 05/30/23: Urine culture still pending Continue Rocephin (3) Hypertension: Code(s): I10 - Essential (primary) hypertension Status: Acute Assessment and Plan: 05/29/23: Blood pressures ranging 114/67 to 152/91 Continues spironolactone, losartan, Imdur 05/30/23: Blood pressure ranging 114/67 to 151/69 No change to current treatment plan 05/31/2023: no change to current treatment plan (4) Type 2 diabetes mellitus: Code(s): E11.9 - Type 2 diabetes mellitus without complications Status: Acute Assessment and Plan: 05/29/23: Blood sugars ranging 135-132 Hemoglobin A1c 6.0 Continue Accu-Cheks AC and HS Continue moderate dose sliding scale insulin Continue to hold metformin 05/30/23: Blood sugars ranging 125-220, more elevated today probably due to the prednisone Continue moderate dose sliding scale insulin for now may need to go up to high-dose sliding scale insulin Continue Accu-Cheks a.c. and HS Continue to hold metformin 05/31/2023: blood sugars ranging 122-185 no change to current treatment plan (5) Coronary artery disease: Code(s): I25.10 - Atherosclerotic heart disease of [place] coronary artery without angina pectoris Status: Acute Assessment and Plan: 05/29/23: Continue aspirin and Plavix Continue atorvastatin and Zeita 05/30/23: No change to current treatment plan (6) Elevated d-dimer: Code(s): R79.89 - Other specified abnormal findings of blood chemistry Status: Acute Assessment and Plan: 05/29/23: D- dimer 1.84 CTA of the chest ordered to rule out PE as patient is experiencing SOB 05/30/23: CTA of the chest was negative for PE however did show some pulmonary arterial hypertension and a 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 Work up in hospital includes a chest x-ray which was negative for any acute cardiopulmonary process, abdominal/pelvic CT showing nonobstructing right nephrolithiasis, mildly thickened irregular bladder wall, punctuate focus of nondependent gas present in the bladder lumen which may be from recent instrumention or infection, consider cystitis. UA was positive for nitrates, 1+ leukocytes, 4+ bacteria, urine WBC's 11-20. Urine and blood cultures were obtained. Patient was started on Rocephin and Azithromycin. On examination today patient is alert and oriented x3, lying in the bed. She denies any acute pain. VSS, she is afebrile, she is currently in room air. Labs today revealed WBC 8.0, hemoglobin 11.5, hematocrit 38.7, sodium 141, potassium 3.8 chloride 109, bicarb 18, BUN 5, creatinine 0.5, blood sugars ranging 152-169, hemoglobin A1c 6.0, liver
[2023-05-31] MEDS: INSULIN ASPART (*BKC) 100 UNITS/ML SUB-Q ×2 (16:52→20:30)
[2023-05-31 17:06] LABS: Glucose Point of Care 326 mg/dl (65-105)
[2023-05-31] MEDS: CEFDINIR 300 MG CAPSULE PO (20:27)
[2023-05-31] MEDS: AZITHROMYCIN 250 MG TABLET 500 MG PO (20:28)
[2023-05-31 20:55] LABS: Glucose Point of Care 230 mg/dl (65-105)
[2023-06-01] VITALS (13 sets, daily range): BP systolic 135–170; BP diastolic 64–78; PULSE 52–78; RESP 16–24; TEMP 35.9–36.7; O2SAT 97–99
--- NOTE | 2023-06-01 | ECHO_ITS ---
Patient Info Name: Oanh Lacy Age: 72 years : 1950 Gender: Female Ht: 66 in Wt: 194 lbs BSA: 2.05 m2 HR: 73 bpm BP: 170 / 78 mmHg Heart Rhythm: Sinus Rhythm Technical Quality: Fair Exam Date: 06/01/2023 11:21 AM Exam Location: Echo Lab Exam Room: 331 Patient Status: Inpatient Admit Date: 05/28/2023 Staff Ordering Physician: Nevaeh Bernstein PA-C Business Records Manager: Cheli Colón RDCS Attending Provider: Abi Pratt DO Referring Physician: Amandeep RIZVI; Exam Type: CA echo doppler color flow Study Info Indications - cough copd sob cad s/p cabg Complete two-dimensional, color flow and Doppler transthoracic echocardiogram is performed. Summary 1. Complete two-dimensional, color flow and Doppler transthoracic echocardiogram is performed. 2. Normal left ventricular size with mild concentric hypertrophy. Overall good left ventricular systolic function, ejection fraction 65-70%. Possible posterolateral hypokinesis. Grade 2 diastolic dysfunction is present. Global longitudinal strain is diminished at -12% consistent with systolic dysfunction. 3. Right ventricular size and function not well visualized. 4. Left atrial chamber dimension is mildly enlarged. 5. There is mild mitral valve regurgitation. 6. Mild pulmonary hypertension, estimated pulmonary arterial systolic pressure is 41 mmHg. 7. Normal sinus rhythm. 8. Technically difficult study. Left Ventricle Left ventricular chamber dimension is normal. Left ventricular systolic function is normal, estimated at Empty. There is mildly increased left ventricular wall thickness. Left ventricular septal wall motion is normal. The left ventricular diastolic function is grade II diastolic dysfunction. Right Ventricle Right ventricular chamber dimension is not well visualized. Right ventricular systolic function is normal. Left Atria Left atrial chamber dimension is mildly enlarged. Right Atria Right atrial chamber dimension is normal. Aortic Valve The aortic valve is trileaflet. There is no aortic valve sclerosis. There is no aortic valve stenosis. There is no aortic valve regurgitation. Pulmonic Valve The pulmonic valve is normal. There is no pulmonic valve stenosis. There is trace pulmonic regurgitation. Mitral Valve The mitral valve has normal leaflets. There is no mitral valve stenosis. There is mild mitral valve regurgitation. Tricuspid Valve The tricuspid valve leaflets are normal. There is no significant tricuspid valve stenosis. There is trace tricuspid valve regurgitation. Mild pulmonary hypertension, estimated pulmonary arterial systolic pressure is 41 mmHg. Pericardium/Pleural The pericardium appears normal. There is no pericardial effusion. Inferior Vena Cava Normal inferior vena cava with >50% collapse upon inspiration consistent with Empty right atrial pressure, 10 mmHg. Aorta The aortic root size at the sinus of Valsalva is normal. The prox ascending aorta size is normal. Left Ventricular Outflow Tract Name Value Normal LVOT 2D LVOT Diameter 2.0 cm LVOT Doppler LVOT Peak Gradient 5 mmHg LVOT Mean Gradient 2 mmHg LVOT VTI
[2023-06-01] MEDS: ALBUTEROL SULFATE NEB 2.5 MG/3 ML INH INHALATION ×4 (02:37→20:09)
[2023-06-01 05:43] LABS: Basophils Percent Auto 0.1 % (0.2-1.2); Eosinophils Percent Auto 0.1 % (0-4.4); Hematocrit 33.9 % (37.0-47.0); Hemoglobin 10.6 g/dL (12.0-15.0); Immature Granulocyte Absolute 0.07 K/mm3 (0.00-0.031); Immature Granulocyte Percent A 0.6 % (0-0.5); Lymphocytes Percent Auto 24.4 % (18.3-44.2); Mean Corpuscular HGB Conc 31.3 g/dl (32-36); Mean Corpuscular Hemoglobin 26.1 pg (26-34); Mean Corpuscular Volume 83.5 fl (80-100); Mean Platelet Volume 10.5 fl (7.4-10.4); Monocytes Absolute Auto 0.6 K/mm3 (0.1-0.6); Monocytes Percent Auto 5.3 % (2.6-8.5); Neutrophils Absolute Auto 7.7 K/mm3 (1.3-6.7); Neutrophils Percent Auto 69.5 % (45.5-73.1); Nucleated Red Blood Cells Perc 0.2 % (0.0-0.2); Platelet Count Result 262 k/mm3 (150-375); Red Blood Count 4.06 M/mm3 (4.2-5.4); Red Cell Distribution Width 16.1 % (11.5-14.5); White Blood Count 11.1 K/mm3 (4.5-10.0)
[2023-06-01 06:03] LABS: Alanine Aminotransferase 33 U/L (6-35); Albumin Level 3.5 g/dL (3.5-5.1); Alkaline Phosphatase 76 U/L (38-126); Anion Gap 9 mmol/L (8-16); Aspartate Amino Transferase 22 U/L (14-36); Bilirubin,Total 0.4 mg/dL (0.2-1.3); Blood Urea Nitrogen 10 mg/dL (7-17); Calcium 9.5 mg/dL (8.4-10.2); Carbon Dioxide 28 mmol/L (22-30); Chloride 104 mmol/L (98-107); Estimated CRCL calculation 92 ml/min; Estimated Glomerular Filt Rate > 60; Glucose 127 mg/dL (65-110); Potassium 3.5 mmol/L (3.4-5.0); Sodium 141 mmol/L (137-145)
[2023-06-01 07:39] LABS: Glucose Point of Care 111 mg/dl (65-105)
[2023-06-01] MEDS: allopurinoL 100 MG TABLET PO (09:14)
[2023-06-01] MEDS: CEFDINIR 300 MG CAPSULE PO ×2 (09:14→21:03)
[2023-06-01] MEDS: predniSONE 20 MG TABLET 60 MG PO (09:14)
[2023-06-01] MEDS: ISOSORBIDE MONONITRATE 60 MG TAB.ER.24H PO (09:15)
[2023-06-01] MEDS: CHOLECALCIFEROL 1,000 UNITS TABLET 1000 UNITS PO (09:15)
[2023-06-01] MEDS: SPIRONOLACTONE 25 MG TABLET PO (09:15)
[2023-06-01] MEDS: CLOPIDOGREL BISULFATE 75 MG TABLET PO (09:15)
[2023-06-01] MEDS: PANTOPRAZOLE 40 MG TABLET PO (09:15)
[2023-06-01] MEDS: EZETIMIBE 10 MG TABLET PO (09:15)
[2023-06-01] MEDS: LOSARTAN POTASSIUM 50 MG TABLET PO ×2 (09:15→16:42)
[2023-06-01] MEDS: ASPIRIN 81 MG ENTERIC TABLET PO (09:15)
[2023-06-01] MEDS: carvediloL 25 MG TABLET PO ×2 (09:15→21:03)
[2023-06-01] MEDS: ENOXAPARIN 40 MG/0.4 ML SYRINGE SUB-Q (09:20)
[2023-06-01 11:24] LABS: Glucose Point of Care 270 mg/dl (65-105)
[2023-06-01] MEDS: INSULIN ASPART (*BKC) 100 UNITS/ML SUB-Q ×3 (11:59→21:01)
--- NOTE | 2023-06-01 16:13 | PM.IMPN ---
Progress Note: A&P Assessment and Plan (1) COPD exacerbation: Code(s): J44.1 - Chronic obstructive pulmonary disease with (acute) exacerbation Status: Acute Assessment and Plan: Continue neb treatments Patient improving on prednisone. Started on IV Solu-Medrol 60 mg Q 8 hours Continue Azithromycin Sputum culture showing normal lou Echocardiogram ordered due to worsening cough and shortness of breath. (2) Urinary tract infection: Code(s): N39.0 - Urinary tract infection, site not specified Status: Acute Assessment and Plan: UA positive for nitrates, 1+ leukocytes,4+ bacteria, urine WBC's 11-20. Urine culture positive for E coli. Rocephin discontinued and Cefdinir started. (3) Hypertension: Code(s): I10 - Essential (primary) hypertension Status: Acute Assessment and Plan: Blood pressures stable Continues spironolactone, losartan, Imdur (4) Type 2 diabetes mellitus: Code(s): E11.9 - Type 2 diabetes mellitus without complications Status: Acute Assessment and Plan: Hemoglobin A1c 6.0 Continue Accu-Cheks AC and HS Continue moderate dose sliding scale insulin Continue to hold metformin (5) Coronary artery disease: Code(s): I25.10 - Atherosclerotic heart disease of [place] coronary artery without angina pectoris Status: Acute Assessment and Plan: Continue aspirin and Plavix Continue atorvastatin and Zeita (6) Elevated d-dimer: Code(s): R79.89 - Other specified abnormal findings of blood chemistry Status: Acute Assessment and Plan: D- dimer 1.84 CTA of the chest ruled out PE, some pulmonary arterial hypertension present as well as stable pulmonary nodules. Subjective Date/time seen: 06/01/23 16:13 Interval history: Patient is short of breath and unable to complete full sentences without gasping for air. Increased patient's steroid to IV. Patient states that she presented with worsening shortness of breath that has not improved. She being given p.o. steroids and this did not help with her symptoms. She denies any chest pain. Did order an echocardiogram today due to cough and shortness of breath. she is a current smoker 60 years. Exam Narrative: GENERAL: Comfortable, no acute distress HENMT: moist mucous membranes EYES: EOM intact b/l NECK: no lymphadenopathy RESPIRATORY: Distant breath sounds CARDIO: distant heart sounds although RRR GI: soft, nontender, bowel sounds present SKIN: no rashes EXTREMITIES: no edema, redness or tenderness Objective Data Vital Signs Vital Signs: Vital Signs - 24 hr 05/31/23 20:28 05/31/23 20:54 05/31/23 20:55 Temperature Pulse Rate 72 74 Respiratory Rate 18 Blood Pressure Pulse Oximetry 98 Oxygen Delivery Room Air 05/31/23 21:07 05/31/23 20:00 05/31/23 20:25 Temperature 96.5 F L Pulse Rate 78 72 Respiratory Rate 18 20 Blood Pressure 149/74 H Pulse Oximetry 100 Oxygen Delivery Room Air 06/01/23 02:38 06/01/23 02:50 06/01/23 05:01 Temperature 96.6 F L Pulse Rate 76 74 59 L Respiratory Rate 18 18 16 Blood Pressure 170/78 H Pulse Oximetry 98 Oxygen Delivery 06/01/23 07:54 06/01/23 07:56 06/01/23 08:02 Temperature Pulse Rate 58 L 58 L 52 L Respiratory Rate 20 20 20 Blood Pressure Pulse Oximetry 97 Oxygen Delivery Room Air 06/01/23 09:15 06/01/23 08:45 06/01/23 13:37 Temperature Pulse Rate 62 71 Respiratory Rate 20 Blood Pressure Pulse Oximetry Oxygen Delivery Room Air 06/01/23 14:00 Temperature 97.9 F Pulse Rate 78 Respiratory Rate 24 H Blood Pressure 135/65 Pulse Oximetry 97 Oxygen Delivery Intake/Output Intake/Output: Intake & Output 05/29/23 05/30/23 05/31/23 06/01/23 23:59 23:59 23:59 23:59 Intake Total 2630 0932 2069 460 Balance 2630 2534 4 460 Meds/Results Medications: Active Medi
[2023-06-01 16:25] LABS: Glucose Point of Care 288 mg/dl (65-105)
[2023-06-01] MEDS: methylPREDNISolone SOD SUCC 125 MG VIAL 80 MG IV PUSH (16:36)
[2023-06-01] MEDS: AZITHROMYCIN 250 MG TABLET 500 MG PO (21:02)
[2023-06-01] MEDS: methylPREDNISolone SOD SUCC 125 MG VIAL 60 MG IV PUSH (21:04)
[2023-06-01 21:16] LABS: Glucose Point of Care 329 mg/dl (65-105)
[2023-06-02] VITALS (11 sets, daily range): BP systolic 147–174; BP diastolic 74–78; PULSE 52–63; RESP 16–20; TEMP 36.1–36.9; O2SAT 96–100
[2023-06-02] MEDS: ALBUTEROL SULFATE NEB 2.5 MG/3 ML INH INHALATION ×3 (01:50→20:45)
[2023-06-02] MEDS: methylPREDNISolone SOD SUCC 125 MG VIAL 60 MG IV PUSH ×3 (05:45→21:13)
[2023-06-02 06:30] LABS: Basophils Percent Auto 0.1 % (0.2-1.2); Hematocrit 36.5 % (37.0-47.0); Hemoglobin 11.3 g/dL (12.0-15.0); Immature Granulocyte Absolute 0.11 K/mm3 (0.00-0.031); Immature Granulocyte Percent A 0.9 % (0-0.5); Lymphocytes Absolute Auto 2.17 K/mm3 (0.9-3.2); Lymphocytes Percent Auto 17.4 % (18.3-44.2); Mean Corpuscular Volume 84.1 fl (80-100); Mean Platelet Volume 10.6 fl (7.4-10.4); Monocytes Absolute Auto 0.2 K/mm3 (0.1-0.6); Monocytes Percent Auto 1.4 % (2.6-8.5); Neutrophils Percent Auto 80.2 % (45.5-73.1); Nucleated Red Blood Cells Perc 0.3 % (0.0-0.2); Platelet Count Result 257 k/mm3 (150-375); Red Blood Count 4.34 M/mm3 (4.2-5.4); Red Cell Distribution Width 16.2 % (11.5-14.5); White Blood Count 12.4 K/mm3 (4.5-10.0)
[2023-06-02 06:45] LABS: Alanine Aminotransferase 43 U/L (6-35); Albumin Level 3.8 g/dL (3.5-5.1); Alkaline Phosphatase 79 U/L (38-126); Anion Gap 9 mmol/L (8-16); Aspartate Amino Transferase 24 U/L (14-36); Bilirubin,Total 0.4 mg/dL (0.2-1.3); Blood Urea Nitrogen 12 mg/dL (7-17); Calcium 9.7 mg/dL (8.4-10.2); Carbon Dioxide 30 mmol/L (22-30); Chloride 102 mmol/L (98-107); Estimated CRCL calculation 92 ml/min; Estimated Glomerular Filt Rate > 60; Glucose 189 mg/dL (65-110); Potassium 3.5 mmol/L (3.4-5.0); Sodium 141 mmol/L (137-145)
[2023-06-02 08:26] LABS: Glucose Point of Care 170 mg/dl (65-105)
[2023-06-02] MEDS: EZETIMIBE 10 MG TABLET PO (08:27)
[2023-06-02] MEDS: ASPIRIN 81 MG ENTERIC TABLET PO (08:28)
[2023-06-02] MEDS: CEFDINIR 300 MG CAPSULE PO ×2 (08:28→21:13)
[2023-06-02] MEDS: SPIRONOLACTONE 25 MG TABLET PO (08:28)
[2023-06-02] MEDS: CHOLECALCIFEROL 1,000 UNITS TABLET 1000 UNITS PO (08:28)
[2023-06-02] MEDS: ISOSORBIDE MONONITRATE 60 MG TAB.ER.24H PO (08:28)
[2023-06-02] MEDS: PANTOPRAZOLE 40 MG TABLET PO (08:28)
[2023-06-02] MEDS: LOSARTAN POTASSIUM 50 MG TABLET PO ×2 (08:28→17:45)
[2023-06-02] MEDS: carvediloL 25 MG TABLET PO ×2 (08:29→21:13)
[2023-06-02] MEDS: CLOPIDOGREL BISULFATE 75 MG TABLET PO (08:29)
[2023-06-02] MEDS: allopurinoL 100 MG TABLET PO (08:29)
[2023-06-02] MEDS: ENOXAPARIN 40 MG/0.4 ML SYRINGE SUB-Q (08:30)
[2023-06-02 12:10] LABS: Glucose Point of Care 227 mg/dl (65-105)
[2023-06-02] MEDS: INSULIN ASPART (*BKC) 100 UNITS/ML SUB-Q ×2 (12:14→21:12)
--- NOTE | 2023-06-02 13:50 | P.PNIM_ITS ---
Progress Note: A&P Assessment and Plan (1) COPD exacerbation: Code(s): J44.1 - Chronic obstructive pulmonary disease with (acute) exacerbation Status: Acute Assessment and Plan: * Continue neb treatments * Patient improving on prednisone. Started on IV Solu-Medrol 60 mg Q 8 hours * Azithromycin completed * Sputum culture showing normal lou * Echocardiogram revealing EF of 65-70%, grade 2 diastolic dysfunction, global longitudinal strain diminished at -12% and pulmonary hypertension with pressure of 41 mm per mercury * Cardiology consulted due to degree of heart failure. (2) Urinary tract infection: Code(s): N39.0 - Urinary tract infection, site not specified Status: Acute Assessment and Plan: * UA positive for nitrates, 1+ leukocytes,4+ bacteria, urine WBC's 11-20. * Urine culture positive for E coli. Rocephin discontinued and Cefdinir started. (3) Hypertension: Code(s): I10 - Essential (primary) hypertension Status: Acute Assessment and Plan: * Blood pressures stable * Continues spironolactone, losartan, Imdur (4) Type 2 diabetes mellitus: Code(s): E11.9 - Type 2 diabetes mellitus without complications Status: Acute Assessment and Plan: * Hemoglobin A1c 6.0 * Continue Accu-Cheks AC and HS * Continue moderate dose sliding scale insulin * Continue to hold metformin (5) Coronary artery disease: Code(s): I25.10 - Atherosclerotic heart disease of [place] coronary artery without angina pectoris Status: Acute Assessment and Plan: * Continue aspirin and Plavix * Continue atorvastatin and Zeita (6) Elevated d-dimer: Code(s): R79.89 - Other specified abnormal findings of blood chemistry Status: Acute Assessment and Plan: * D- dimer 1.84 * CTA of the chest ruled out PE, some pulmonary arterial hypertension present as well as stable pulmonary nodules. Subjective Date/time seen: 06/02/23 13:50 Interval history: Patient shortness of breath is somewhat improved today. Her echocardiogram did come back revealing a grade 2 diastolic dysfunction which could be contributing to some of patient shortness of breath. Cardiology consulted for their input. Will continue patient on another day of IV steroids. Depending on what Cardiology says patient could potentially be discharged tomorrow if shortness breath improves. Exam Narrative: GENERAL: Comfortable, no acute distress HENMT: moist mucous membranes EYES: EOM intact b/l NECK: no lymphadenopathy RESPIRATORY: Distant breath sounds , minimal wheezing CARDIO: distant heart sounds although RRR GI: soft, nontender, bowel sounds present SKIN: no rashes EXTREMITIES: no edema, redness or tenderness Objective Data Vital Signs Vital Signs: Vital Signs - 24 hr 06/01/23 14:00 06/01/23 20:11 06/01/23 20:12 Temperature 97.9 F Pulse Rate 78 53 L 53 L Respiratory Rate 24 H 20 Blood Pressure 135/65 Pulse Oximetry 97 99 Oxygen Delivery Room Air 06/01/23 21:03 06/01/23 20:00 06/01/23 19:40 Temperature 98.1 F Pulse Rate 58 L 58 L Respiratory Rate 16 Blood Pressure 139/64 Pulse Oximetry 97 Oxygen Delivery Room Air 06/02/23 01:52
--- NOTE | 2023-06-02 13:50 | PM.IMPN ---
Progress Note: A&P Assessment and Plan (1) COPD exacerbation: Code(s): J44.1 - Chronic obstructive pulmonary disease with (acute) exacerbation Status: Acute Assessment and Plan: Continue neb treatments Patient improving on prednisone. Started on IV Solu-Medrol 60 mg Q 8 hours Azithromycin completed Sputum culture showing normal lou Echocardiogram revealing EF of 65-70%, grade 2 diastolic dysfunction, global longitudinal strain diminished at -12% and pulmonary hypertension with pressure of 41 mm per mercury Cardiology consulted due to degree of heart failure. (2) Urinary tract infection: Code(s): N39.0 - Urinary tract infection, site not specified Status: Acute Assessment and Plan: UA positive for nitrates, 1+ leukocytes,4+ bacteria, urine WBC's 11-20. Urine culture positive for E coli. Rocephin discontinued and Cefdinir started. (3) Hypertension: Code(s): I10 - Essential (primary) hypertension Status: Acute Assessment and Plan: Blood pressures stable Continues spironolactone, losartan, Imdur (4) Type 2 diabetes mellitus: Code(s): E11.9 - Type 2 diabetes mellitus without complications Status: Acute Assessment and Plan: Hemoglobin A1c 6.0 Continue Accu-Cheks AC and HS Continue moderate dose sliding scale insulin Continue to hold metformin (5) Coronary artery disease: Code(s): I25.10 - Atherosclerotic heart disease of [place] coronary artery without angina pectoris Status: Acute Assessment and Plan: Continue aspirin and Plavix Continue atorvastatin and Zeita (6) Elevated d-dimer: Code(s): R79.89 - Other specified abnormal findings of blood chemistry Status: Acute Assessment and Plan: D- dimer 1.84 CTA of the chest ruled out PE, some pulmonary arterial hypertension present as well as stable pulmonary nodules. Subjective Date/time seen: 06/02/23 13:50 Interval history: Patient shortness of breath is somewhat improved today. Her echocardiogram did come back revealing a grade 2 diastolic dysfunction which could be contributing to some of patient shortness of breath. Cardiology consulted for their input. Will continue patient on another day of IV steroids. Depending on what Cardiology says patient could potentially be discharged tomorrow if shortness breath improves. Exam Narrative: GENERAL: Comfortable, no acute distress HENMT: moist mucous membranes EYES: EOM intact b/l NECK: no lymphadenopathy RESPIRATORY: Distant breath sounds , minimal wheezing CARDIO: distant heart sounds although RRR GI: soft, nontender, bowel sounds present SKIN: no rashes EXTREMITIES: no edema, redness or tenderness Objective Data Vital Signs Vital Signs: Vital Signs - 24 hr 06/01/23 14:00 06/01/23 20:11 06/01/23 20:12 Temperature 97.9 F Pulse Rate 78 53 L 53 L Respiratory Rate 24 H 20 Blood Pressure 135/65 Pulse Oximetry 97 99 Oxygen Delivery Room Air 06/01/23 21:03 06/01/23 20:00 06/01/23 19:40 Temperature 98.1 F Pulse Rate 58 L 58 L Respiratory Rate 16 Blood Pressure 139/64 Pulse Oximetry 97 Oxygen Delivery Room Air 06/02/23 01:52 06/02/23 01:58 06/02/23 06:20 Temperature 96.9 F L Pulse Rate 56 L 55 L 57 L Respiratory Rate 20 20 18 Blood Pressure 174/78 H Pulse Oximetry 100 Oxygen Delivery 06/02/23 08:29 06/02/23 09:17 06/02/23 08:00 Temperature Pulse Rate 63 63 Respiratory Rate 20 Blood Pressure Pulse Oximetry Oxygen Delivery Room Air Intake/Output Intake/Output: Intake & Output 05/30/23 05/31/23 06/01/23 06/02/23 23:59 23:59 23:59 23:59 Intake Total 2534 2064 1240 940 Balance 2534 2064 1240 940 Meds/Results Medications: Active Medications Generic Name Dose Route Start Last Admin Trade Name Freq PRN Reason Stop Dose Admin Acetaminophen 650 mg 05/28/23 22:4
--- NOTE | 2023-06-02 15:48 | PCRCNOTE ---
Window of time for administration has passed. See next scheduled administration.
[2023-06-02 17:21] LABS: Glucose Point of Care 198 mg/dl (65-105)
[2023-06-02 21:05] LABS: Glucose Point of Care 291 mg/dl (65-105)
[2023-06-03] VITALS (8 sets, daily range): BP systolic 134–173; BP diastolic 69–79; PULSE 55–80; RESP 14–20; TEMP 35.8–36.2; O2SAT 99–100
[2023-06-03] MEDS: ALBUTEROL SULFATE NEB 2.5 MG/3 ML INH INHALATION ×3 (02:59→14:22)
[2023-06-03] MEDS: methylPREDNISolone SOD SUCC 125 MG VIAL 60 MG IV PUSH ×2 (05:42→12:53)
[2023-06-03 07:05] LABS: Hematocrit 35.8 % (37.0-47.0); Mean Corpuscular HGB Conc 30.7 g/dl (32-36); Mean Corpuscular Hemoglobin 25.9 pg (26-34); Mean Corpuscular Volume 84.4 fl (80-100); Mean Platelet Volume 11.1 fl (7.4-10.4); Platelet Count Result 286 k/mm3 (150-375); Red Blood Count 4.24 M/mm3 (4.2-5.4); Red Cell Distribution Width 16.3 % (11.5-14.5)
[2023-06-03 07:16] LABS: Alanine Aminotransferase 39 U/L (6-35); Albumin Level 3.6 g/dL (3.5-5.1); Alkaline Phosphatase 77 U/L (38-126); Anion Gap 11 mmol/L (8-16); Aspartate Amino Transferase 23 U/L (14-36); Bilirubin,Total 0.4 mg/dL (0.2-1.3); Blood Urea Nitrogen 16 mg/dL (7-17); Calcium 9.5 mg/dL (8.4-10.2); Carbon Dioxide 28 mmol/L (22-30); Chloride 100 mmol/L (98-107); Estimated CRCL calculation 92 ml/min; Estimated Glomerular Filt Rate > 60; Glucose 204 mg/dL (65-110); Potassium 3.3 mmol/L (3.4-5.0); Sodium 139 mmol/L (137-145)
[2023-06-03 07:49] LABS: Glucose Point of Care 202 mg/dl (65-105)
[2023-06-03] MEDS: INSULIN ASPART (*BKC) 100 UNITS/ML SUB-Q ×2 (09:17→12:47)
[2023-06-03] MEDS: CEFDINIR 300 MG CAPSULE PO (09:19)
[2023-06-03] MEDS: LOSARTAN POTASSIUM 50 MG TABLET PO (09:19)
[2023-06-03] MEDS: allopurinoL 100 MG TABLET PO (09:19)
[2023-06-03] MEDS: SPIRONOLACTONE 25 MG TABLET PO (09:19)
[2023-06-03] MEDS: ASPIRIN 81 MG ENTERIC TABLET PO (09:19)
[2023-06-03] MEDS: EZETIMIBE 10 MG TABLET PO (09:19)
[2023-06-03] MEDS: ISOSORBIDE MONONITRATE 60 MG TAB.ER.24H PO (09:19)
[2023-06-03] MEDS: carvediloL 25 MG TABLET PO (09:19)
[2023-06-03] MEDS: PANTOPRAZOLE 40 MG TABLET PO (09:20)
[2023-06-03] MEDS: CLOPIDOGREL BISULFATE 75 MG TABLET PO (09:20)
[2023-06-03] MEDS: CHOLECALCIFEROL 1,000 UNITS TABLET 1000 UNITS PO (09:20)
[2023-06-03] MEDS: POTASSIUM CHLORIDE 20 MEQ ER TABLET PO (09:20)
[2023-06-03] MEDS: ENOXAPARIN 40 MG/0.4 ML SYRINGE SUB-Q (09:20)
--- NOTE | 2023-06-03 10:08 | PM.DS ---
DS: Admitting Diagnosis Discharge Date 06/03/23 Admitting Diagnosis COPD exacerbation, UTI DS: Discharge Diagnosis Discharge Diagnosis (1) COPD exacerbation: Code(s): J44.1 - Chronic obstructive pulmonary disease with (acute) exacerbation Status: Acute (2) Urinary tract infection: Code(s): N39.0 - Urinary tract infection, site not specified Status: Acute (3) Hypertension: Code(s): I10 - Essential (primary) hypertension Status: Acute (4) Type 2 diabetes mellitus: Code(s): E11.9 - Type 2 diabetes mellitus without complications Status: Acute (5) Coronary artery disease: Code(s): I25.10 - Atherosclerotic heart disease of [place] coronary artery without angina pectoris Status: Acute (6) Elevated d-dimer: Code(s): R79.89 - Other specified abnormal findings of blood chemistry Status: Acute DS: Summary Hospital Course Hospital Course: This is a very pleasant 72-year-old female with COPD, CAD status post CABG in 2021, hypertension, dyslipidemia, diabetes and GERD the present to the ED due to cough, shortness of breath and decrease in urination. Patient uses albuterol inhaler at home although this is not help with her shortness of breath. She was found to have a UA suspicious for infection she was started on Rocephin. Chest x-ray showed no cardiopulmonary process. CT of the abdomen pelvis showed nonobstructing right nephrolithiasis and mildly thickened irregular bladder wall. She was started on DuoNebs and prednisone for COPD. Patient continued to have worsening shortness of breath and difficulty speaking in full sentences without continuing to be short of breath. She was transition to IV Solu-Medrol. Patient shortness of breath greatly improved with this treatment. Due to shortness of breath echocardiogram was performed she was found to have a grade 2 diastolic dysfunction. She does see Cardiology here at [facility]. It is advised that she follow-up with her digital composer as an outpatient. Her urine came back positive for E coli sensitive to Rocephin. She was transitioned to Omnicef. She completed a course of Omnicef while in the hospital. Will send her home on a prednisone taper for her acute COPD exacerbation. Her labs and vital signs are stable and she is medically clear for discharge at this time. Time Spent with Patient Time attestation: Total time spent providing and/or coordinating discharge services: Exam Narrative: GENERAL: Comfortable, no acute distress HENMT: moist mucous membranes EYES: EOM intact b/l NECK: no lymphadenopathy RESPIRATORY: Distant breath sounds , minimal wheezing CARDIO: distant heart sounds although RRR GI: soft, nontender, bowel sounds present SKIN: no rashes EXTREMITIES: no edema, redness or tenderness DS: Data Data Completed and Pending Labs on day of discharge: Labs from last 24 hours 06/03/23 06/03/23 06/02/23 07:34 05:59 20:42 WBC 16.0 H RBC 4.24 Hgb 11.0 L Hct 35.8 L MCV 84.4 MCH 25.9 L MCHC 30.7 L RDW 16.3 H Plt Count 286 MPV 11.1 H Sodium 139 Potassium 3.3 L Chloride 100 Carbon Dioxide 28 Anion Gap 11 BUN 16 Creatinine 0.50 L Estim Creat Clear Calc 92 Estimated GFR > 60 Glucose 204 H POC Capillary Glucose 202 H 291 H Calcium 9.5 Total Bilirubin 0.4 AST 23 ALT 39 H Alkaline Phosphatase 77 Total Protein 6.0 L Albumin 3.6 06/02/23 06/02/23 17:08 11:56 WBC RBC Hgb Hct MCV MCH MCHC RDW Plt Count MPV Sodium Potassium Chloride Carbon Dioxide Anion Gap BUN Creatinine Estim Creat Clear Calc Estimated GFR Glucose POC Capillary Glucose 198 H 227 H Calcium Total Bilirubin AST ALT Alkaline Phosphatase Total Protein Albumin Discharge Plan Discharge Attending physician on discharge: Edy Mattson
[2023-06-03 11:41] LABS: Glucose Point of Care 340 mg/dl (65-105)
== END 2023-06-03 15:40 | disposition home or self-care (01) | DRG 191 ==
LOC: ANHED 17:00 → ANH3MEDSUR 20:14
PROVIDERS: Nurse Practitioner Acute Care; Physician Assistant; Admitting Provider Internal Medicine; Emergency Provider General Practice; PCP Family Medicine; Visit Provider Internal Medicine Critical Care Medicine
DX: J44.1 Chronic obstructive pulmonary disease with (acute) exacerbation (principal); N39.0 Urinary tract infection, site not specified; B96.20 Unspecified Escherichia coli [E. coli] as the cause of diseases classified elsewhere; Z20.822 Contact with and (suspected) exposure to COVID-19; E11.9 Type 2 diabetes mellitus without complications; E78.5 Hyperlipidemia, unspecified; G89.29 Other chronic pain; I25.10 Atherosclerotic heart disease of native coronary artery without angina pectoris; I10 Essential (primary) hypertension; J43.9 Emphysema, unspecified; K21.9 Gastro-esophageal reflux disease without esophagitis; M54.9 Dorsalgia, unspecified; M19.90 Unspecified osteoarthritis, unspecified site; N20.0 Calculus of kidney; R91.8 Other nonspecific abnormal finding of lung field; Z96.653 Presence of artificial knee joint, bilateral; Z98.49 Cataract extraction status, unspecified eye; Z90.49 Acquired absence of other specified parts of digestive tract; Z95.1 Presence of aortocoronary bypass graft; Z79.82 Long term (current) use of aspirin; Z79.02 Long term (current) use of antithrombotics/antiplatelets; Z79.84 Long term (current) use of oral hypoglycemic drugs; Z88.0 Allergy status to penicillin; Z86.73 Personal history of transient ischemic attack (TIA), and cerebral infarction without residual deficits; Z87.891 Personal history of nicotine dependence
CPT/HCPCS: 36415; 36600; 71045; 71275; 74176; 80053; 81001; 82375; 82805; 82948; 83036; 83050; 83735; 83880; 84145; 84484; 85025; 85027; 85380; 85610; 85730; 87070; 87077; 87086; 87186; 87205; 87637; 93005; 93306; 94640; 96361; 96365; 96366; 96367; 96372; 96376; 99285; A9270; G0378; J0456; J0696; J1650; J1815; J2930; J7030; J7512; Q9967